=== PATIENT | female | born 1935 | race African-American/Black ===

== ENCOUNTER 2020-10-21 17:47 | Observation (INO) | payer OTHER, MEDICAID ==
[2020-10-21 18:27] LABS: #Basophils 0.1 10x3/uL (0.0-0.2); #Eosinphils 0.2 10x3/uL (0.0-0.5); #Monocytes 0.8 10x3/uL (0.0-1.1); #Neutrophils 5.9 10x3/uL (1.5-8.4); %Basophils 0.7 % (0.0-2.0); %Eosinophils 2.6 % (0.0-6.0); %Lymphocytes 23.7 % (18.0-47.0); %Monocytes 8.3 % (0.0-10.0); %Neutrophils 64.4 % (40.0-75.0); Hemoglobin 13.1 g/dL (12.0-15.5); Mean Corpuscular HGB CONC 31.3 g/dL (32.0-36.0); Mean Corpuscular Hemoglobin 28.5 pg (27.0-33.0); Mean Corpuscular Volume 91.1 fl (81.6-98.3); Mean Platelet Volume 10.1 fl (7.4-10.4); Platelet Count 239 10x3/uL (150-450); RBC Distribution Width 15.2 % (11.5-14.5); Red Blood Cell (RBC) Count 4.59 10x6/uL (3.90-5.03); White Blood Cell (WBC) Count 9.1 10x3/uL (3.5-10.5)
[2020-10-21 18:39] LABS: ALT (SGPT) 10 U/L (8-55); AST (SGOT) 17 U/L (5-34); Albumin 3.9 g/dL (3.4-4.8); Alkaline Phosphatase 202 U/L (40-110); Anion Gap 14 mmol/L (10-20); BUN (Urea Nitrogen) 17 mg/dL (9.8-20.1); Bilirubin, Total 0.5 mg/dL (0.2-1.2); Calc. Creatinine Clearance 0 mL/min (70-130); Calcium 9.9 mg/dL (7.8-10.44); Carbon Dioxide 26 mmol/L (23-31); Chloride 106 mmol/L (98-107); Globulin 3.4 g/dL (2.4-3.5); Glucose 107 mg/dL (83-110); Potassium 4.1 mmol/L (3.5-5.1); Protein, Total 7.3 g/dL (5.8-8.1); Sodium 142 mmol/L (136-145)
[2020-10-21 18:56] LABS: CKMB 1.8 ng/mL (0-6.6)
[2020-10-21] MEDS ORDERED: Acetaminophen 325 MG TAB PO PRN (19:29)
[2020-10-21] MEDS ORDERED: Ondansetron PF 4 MG/2 ML Vial IVP PRN (19:29)
[2020-10-21] MEDS ORDERED: Ondansetron ODT 4 MG TAB PO PRN (19:29)
[2020-10-21] MEDS ORDERED: HumaLOG 300 UNITS/3 ML VIAL SC PRN (19:39)
[2020-10-21] MEDS ORDERED: Dextrose 50% Abboject 50 ML SYRINGE SLOW IVP PRN (19:39)
[2020-10-21] MEDS ORDERED: Dextrose 5% in Water 1,000 ML IV PRN (19:39)
[2020-10-21 19:58] LABS: Bilirubin Neg (Negative); Blood, Urine Negative (Negative); Clarity Clear (Clear); Glucose, Urine (Dipstick) >=1000 mg/dL (Negative); Ketone, Urine Negative (Negative); Leukocyte 25 (Negative); Nitrite Negative (Negative); Protein, Urine (Dipstick) Negative (Neg-Trace); Urobilinogen Normal mg/dL (Less than 2)
[2020-10-21 20:16] LABS: Bacteria/HPF Rare-Few HPF (None Seen); RBC/HPF 0-3 HPF (0-3); Squamous Epithelial 0-3 HPF (0-3); WBC/HPF 0-3 HPF (0-3)
[2020-10-21] MEDS ORDERED: Aspirin 325 MG TAB ONE (20:23)
[2020-10-21 23:20] LABS: Troponin I 0.047 ng/mL (< 0.028)
[2020-10-22] MEDS ORDERED: Acetaminophen 325 MG TAB ONE (00:55)
[2020-10-22 03:49] LABS: #Basophils 0.1 10x3/uL (0.0-0.2); #Eosinphils 0.3 10x3/uL (0.0-0.5); #Monocytes 0.7 10x3/uL (0.0-1.1); #Neutrophils 5.5 10x3/uL (1.5-8.4); %Basophils 0.7 % (0.0-2.0); %Eosinophils 3.4 % (0.0-6.0); %Lymphocytes 28.1 % (18.0-47.0); %Neutrophils 59.5 % (40.0-75.0); Hemoglobin 12.2 g/dL (12.0-15.5); Mean Corpuscular HGB CONC 31.5 g/dL (32.0-36.0); Mean Corpuscular Hemoglobin 28.4 pg (27.0-33.0); Mean Platelet Volume 10.3 fl (7.4-10.4); Platelet Count 218 10x3/uL (150-450); RBC Distribution Width 15.2 % (11.5-14.5); White Blood Cell (WBC) Count 9.2 10x3/uL (3.5-10.5)
[2020-10-22 04:14] LABS: ALT (SGPT) 9 U/L (8-55); AST (SGOT) 14 U/L (5-34); Albumin 3.4 g/dL (3.4-4.8); Alkaline Phosphatase 165 U/L (40-110); Anion Gap 12 mmol/L (10-20); BUN (Urea Nitrogen) 19 mg/dL (9.8-20.1); Bilirubin, Total 0.5 mg/dL (0.2-1.2); Calc. Creatinine Clearance 0 mL/min (70-130); Calcium 9.8 mg/dL (7.8-10.44); Carbon Dioxide 26 mmol/L (23-31); Cardiac Risk 2.9 (Less than 4.5); Chloride 107 mmol/L (98-107); Cholesterol 127 mg/dl (< 200 Desired); Globulin 3.1 g/dL (2.4-3.5); Glucose 103 mg/dL (83-110); HDL Cholesterol 44 mg/dL (>60 Neg Risk); LDL Cholesterol, Calculated 65 mg/dL; Potassium 4.2 mmol/L (3.5-5.1); Protein, Total 6.5 g/dL (5.8-8.1); Sodium 141 mmol/L (136-145); Triglycerides 92 mg/dL (Less than 150)
[2020-10-22] MEDS ORDERED: Enoxaparin Sodium 40 MG/0.4 ML SYRINGE ONE (08:52)
[2020-10-22] MEDS: Carvedilol 12.5 MG TAB PO SCH ×2 (09:34→17:53)
[2020-10-22] MEDS: Amlodipine 10 MG TAB PO SCH (09:34)
[2020-10-22] MEDS: Citalopram 20 MG TAB PO SCH (09:35)
[2020-10-22] MEDS: Isosorbide Dinitrate 10 MG TAB PO SCH (09:35)
[2020-10-22] MEDS: Aspirin 81 mg Enteric Coated Tablet PO SCH (09:35)
[2020-10-22] MEDS: Losartan Potassium 50 MG TAB PO SCH (09:35)
[2020-10-22] MEDS: Enoxaparin Sodium 40 MG/0.4 ML SYRINGE SC SCH (09:35)
[2020-10-22] MEDS: Furosemide 20 MG TAB PO SCH (09:35)
[2020-10-22] MEDS: Pioglitazone HCl 15 MG TAB PO SCH (09:36)
[2020-10-22] MEDS: Magnesium Oxide 400 MG TAB PO SCH ×2 (09:36→22:20)
[2020-10-22] MEDS: Montelukast Sodium 10 mg Tablet PO SCH (09:36)
[2020-10-22] MEDS: Baclofen 10 MG TAB PO SCH ×3 (09:48→22:20)
[2020-10-22 10:48] LABS: Bilirubin Neg (Negative); Blood, Urine 25 (Negative); Clarity Cloudy (Clear); Glucose, Urine (Dipstick) >=1000 mg/dL (Negative); Ketone, Urine Negative (Negative); Leukocyte 500 (Negative); Nitrite Negative (Negative); Protein, Urine (Dipstick) 30 mg/dl (Neg-Trace); Specific Gravity, Urine 1.015 (1.002-1.036); Urobilinogen Normal mg/dL (Less than 2)
[2020-10-22 11:02] LABS: Urine Culture Reflex No No
[2020-10-22 11:14] LABS: Anion Gap 12 mmol/L (10-20); BUN (Urea Nitrogen) 18 mg/dL (9.8-20.1); Calc. Creatinine Clearance 0 mL/min (70-130); Calcium 9.8 mg/dL (7.8-10.44); Carbon Dioxide 27 mmol/L (23-31); Chloride 106 mmol/L (98-107); Glucose 120 mg/dL (83-110); Potassium 4.5 mmol/L (3.5-5.1); Sodium 140 mmol/L (136-145)
[2020-10-22 11:24] LABS: Bacteria/HPF 3+ HPF (None Seen); Squamous Epithelial 0-3 HPF (0-3)
[2020-10-22 16:10] VITALS: BMI 34.3
[2020-10-22] MEDS ORDERED: Atorvastatin Calcium 40 MG TAB PO SCH (21:00)
[2020-10-22 21:13] LABS: SARS-CoV-2 PCR by NAA Not Detected (NotDetected)
[2020-10-23 04:54] LABS: #Eosinphils 0.2 10x3/uL (0.0-0.5); #Monocytes 0.8 10x3/uL (0.0-1.1); #Neutrophils 5.2 10x3/uL (1.5-8.4); %Basophils 0.5 % (0.0-2.0); %Eosinophils 2.3 % (0.0-6.0); %Lymphocytes 28.5 % (18.0-47.0); %Monocytes 9.2 % (0.0-10.0); %Neutrophils 59.3 % (40.0-75.0); Hemoglobin 12.1 g/dL (12.0-15.5); Mean Corpuscular HGB CONC 31.3 g/dL (32.0-36.0); Mean Corpuscular Hemoglobin 28.2 pg (27.0-33.0); Mean Platelet Volume 10.9 fl (7.4-10.4); Platelet Count 209 10x3/uL (150-450); RBC Distribution Width 15.3 % (11.5-14.5); Red Blood Cell (RBC) Count 4.29 10x6/uL (3.90-5.03); White Blood Cell (WBC) Count 8.7 10x3/uL (3.5-10.5)
[2020-10-23 05:17] LABS: Troponin I 0.034 ng/mL (< 0.028)
[2020-10-23] MEDS ORDERED: hydrALAZINE 20 MG/ML VIAL SLOW IVP PRN (08:05)
[2020-10-23] MEDS ORDERED: GUAIFENESIN SF SOLN 200 MG/10 ML UDCUP PO PRN (08:05)
[2020-10-23] MEDS ORDERED: Calcium Carbonate 500 MG ChewTAB PO PRN (08:05)
[2020-10-23] MEDS ORDERED: Loratadine 10 MG TAB PO PRN (08:05)
[2020-10-23] MEDS ORDERED: Artificial Tear Sol 15 ML BOT EA EYE PRN (08:05)
[2020-10-23] MEDS ORDERED: Loperamide HCl 2 MG CAP PO PRN (08:05)
[2020-10-23] MEDS ORDERED: Senokot S 8.6-50 MG TAB PO PRN (08:05)
[2020-10-23] MEDS ORDERED: Benzonatate 100 MG CAP PO PRN (08:05)
[2020-10-23] MEDS ORDERED: Cepastat Lozenges 1 LOZ PO PRN (08:05)
[2020-10-23] MEDS ORDERED: Sodium Chloride 0.65% Nasal 44 ML BOT EA NARE PRN (08:05)
[2020-10-23] MEDS ORDERED: Hydrocerin (Eucerin) Cream 120 gm Jar TOP PRN (08:05)
[2020-10-23] MEDS ORDERED: Bisacodyl 5 MG TAB PO PRN (08:05)
[2020-10-23] MEDS: Citalopram 20 MG TAB PO SCH (08:45)
[2020-10-23] MEDS: Furosemide 20 MG TAB PO SCH (08:45)
[2020-10-23] MEDS: Montelukast Sodium 10 mg Tablet PO SCH (08:45)
[2020-10-23] MEDS: Magnesium Oxide 400 MG TAB PO SCH (08:45)
[2020-10-23] MEDS: Losartan Potassium 50 MG TAB PO SCH (08:45)
[2020-10-23] MEDS: Amlodipine 10 MG TAB PO SCH (08:45)
[2020-10-23] MEDS: Baclofen 10 MG TAB PO SCH ×2 (08:45→16:51)
[2020-10-23] MEDS: Pioglitazone HCl 15 MG TAB PO SCH (08:45)
[2020-10-23] MEDS: Aspirin 81 mg Enteric Coated Tablet PO SCH (08:45)
[2020-10-23] MEDS: Isosorbide Dinitrate 10 MG TAB PO SCH (08:45)
[2020-10-23] MEDS: Carvedilol 12.5 MG TAB PO SCH ×2 (08:45→16:51)
[2020-10-23] MEDS: Enoxaparin Sodium 40 MG/0.4 ML SYRINGE SC SCH (08:46)
[2020-10-23] MEDS: cefTRIAXone\\ROCEPHIN 1 GM in Sodium Chloride 0.9% 100 ML IVPB SCH ×2 (11:30→16:51)
[2020-10-23 16:28] VITALS: BP 114/63; TEMP 97.6
== END 2020-10-23 18:37 | disposition home or self-care (01) ==
LOC: CSHERS 17:47 → CSHERHOLD 19:29 → UNDOADMOB 23:19 → INTOOBSV 23:19 → CSHERHOLD 23:19 → CSHTELE 10-22 15:50
PROVIDERS: ADMIT Internal Medicine; ATTEND Internal Medicine
DX: G45.9 Transient cerebral ischemic attack, unspecified (principal); N39.0 Urinary tract infection, site not specified; J44.9 Chronic obstructive pulmonary disease, unspecified; I25.10 Atherosclerotic heart disease of native coronary artery without angina pectoris; E11.9 Type 2 diabetes mellitus without complications; Z79.4 Long term (current) use of insulin; E78.5 Hyperlipidemia, unspecified; I10 Essential (primary) hypertension; E66.9 Obesity, unspecified; I48.0 Paroxysmal atrial fibrillation; Z79.899 Other long term (current) drug therapy; Z79.82 Long term (current) use of aspirin; Z20.822 Contact with and (suspected) exposure to COVID-19
CPT/HCPCS: 36415; 70450; 70551; 71045; 80053; 80061; 81001; 81003; 81015; 82553; 83036; 83735; 84484; 85025; 87086; 87186; 93005; 93306; 94760; 96372; G0378; J0696; J1650; J3490; U0003; U0005

== ENCOUNTER 2021-06-09 05:35 | Emergency (ER) | payer MEDICARE, OTHER ==
[2021-06-09] MEDS ORDERED: HYDROcodone/Acetaminophen 5/325 mg Tablet ONE (06:28)
== END 2021-06-09 06:48 | disposition home or self-care (01) ==
LOC: CSHERS 05:35
DX: S70.02XA Contusion of left hip, initial encounter (principal); K21.9 Gastro-esophageal reflux disease without esophagitis; I11.0 Hypertensive heart disease with heart failure; I50.9 Heart failure, unspecified; E11.9 Type 2 diabetes mellitus without complications; I25.10 Atherosclerotic heart disease of native coronary artery without angina pectoris; I25.2 Old myocardial infarction; I48.91 Unspecified atrial fibrillation; E78.5 Hyperlipidemia, unspecified; E78.00 Pure hypercholesterolemia, unspecified; J44.9 Chronic obstructive pulmonary disease, unspecified; W19.XXXA Unspecified fall, initial encounter; Z87.19 Personal history of other diseases of the digestive system; Z86.73 Personal history of transient ischemic attack (TIA), and cerebral infarction without residual deficits; Z95.5 Presence of coronary angioplasty implant and graft; Z79.82 Long term (current) use of aspirin; Z79.899 Other long term (current) drug therapy
CPT/HCPCS: 72170

== ENCOUNTER 2022-05-11 12:55 | Emergency (ER) | payer OTHER ==
[2022-05-11 14:43] LABS: Anion Gap 16 mmol/L (10-20); BUN (Urea Nitrogen) 22 mg/dL (9.8-20.1); Calc. Creatinine Clearance 0 mL/min (70-130); Calcium 9.8 mg/dL (7.8-10.44); Carbon Dioxide 26 mmol/L (23-31); Chloride 100 mmol/L (98-107); Estimated GFR 46; Glucose 83 mg/dL (83-110); Magnesium 2.1 mg/dL (1.6-2.6); Potassium 4.7 mmol/L (3.5-5.1); Sodium 137 mmol/L (136-145)
[2022-05-11 14:46] LABS: #Basophils 0.1 10x3/uL (0.0-0.2); #Eosinphils 0.1 10x3/uL (0.0-0.5); #Monocytes 0.9 10x3/uL (0.0-1.1); #Neutrophils 5.6 10x3/uL (1.5-8.4); %Basophils 0.5 % (0.0-2.0); %Eosinophils 0.6 % (0.0-6.0); %Lymphocytes 28.4 % (18.0-47.0); %Neutrophils 59.8 % (40.0-75.0); Hemoglobin 15.3 g/dL (12.0-15.5); Mean Corpuscular HGB CONC 32.5 g/dL (32.0-36.0); Mean Corpuscular Hemoglobin 29.9 pg (27.0-33.0); Mean Corpuscular Volume 92.2 fl (81.6-98.3); Mean Platelet Volume 11.2 fl (7.4-10.4); Platelet Count 129 10x3/uL (150-450); RBC Distribution Width 15.1 % (11.5-14.5); Red Blood Cell (RBC) Count 5.11 10x6/uL (3.90-5.03); White Blood Cell (WBC) Count 9.4 10x3/uL (3.5-10.5)
[2022-05-11 15:02] LABS: Bilirubin Neg (Negative); Blood, Urine 50 (Negative); Clarity Clear (Clear); Glucose, Urine (Dipstick) >=1000 mg/dL (Negative); Ketone, Urine 5 mg/dL (Negative); Leukocyte Negative (Negative); Nitrite Negative (Negative); Protein, Urine (Dipstick) 15 mg/dl (Neg-Trace); Urobilinogen Normal mg/dL (Less than 2)
[2022-05-11 15:35] LABS: Bacteria/HPF Rare-Few HPF (None Seen); RBC/HPF 0-3 HPF (0-3); Transitional Epithelial 0-3 HPF (None Seen); WBC/HPF 0-3 HPF (0-3)
[2022-05-11 17:31] LABS: Actual Bicarbonate (HCO3v) 25 mEq/L (22-28); Base Excess 0.5 mEq/L (-2 - +2); Puncture Site Other Site
== END 2022-05-11 18:59 | disposition home or self-care (01) ==
LOC: CSHERS 12:55
DX: R41.0 Disorientation, unspecified (principal); K21.9 Gastro-esophageal reflux disease without esophagitis; E78.00 Pure hypercholesterolemia, unspecified; J44.9 Chronic obstructive pulmonary disease, unspecified; I11.0 Hypertensive heart disease with heart failure; I50.9 Heart failure, unspecified; E11.9 Type 2 diabetes mellitus without complications; I25.10 Atherosclerotic heart disease of native coronary artery without angina pectoris
CPT/HCPCS: 51701; 70450; 72192; 80048; 81003; 81015; 82805; 83735; 85025

== ENCOUNTER 2022-05-14 04:57 | Inpatient (IN) | payer OTHER ==
[2022-05-14 05:41] LABS: Bilirubin Neg (Negative); Blood, Urine 10 (Negative); Clarity Clear (Clear); Glucose, Urine (Dipstick) >=1000 mg/dL (Negative); Ketone, Urine Negative (Negative); Leukocyte 100 (Negative); Nitrite Negative (Negative); Protein, Urine (Dipstick) Negative (Neg-Trace); Specific Gravity, Urine 1.005 (1.005-1.030); Urobilinogen Normal mg/dL (Less than 2)
[2022-05-14 06:09] LABS: #Eosinphils 0.2 10x3/uL (0.0-0.5); #Monocytes 0.9 10x3/uL (0.0-1.1); #Neutrophils 5.1 10x3/uL (1.5-8.4); %Basophils 0.5 % (0.0-2.0); %Lymphocytes 23.9 % (18.0-47.0); %Monocytes 10.8 % (0.0-10.0); %Neutrophils 61.9 % (40.0-75.0); Hemoglobin 13.5 g/dL (12.0-15.5); Mean Corpuscular HGB CONC 32.3 g/dL (32.0-36.0); Mean Corpuscular Hemoglobin 30.3 pg (27.0-33.0); Mean Corpuscular Volume 93.9 fl (81.6-98.3); Mean Platelet Volume 10.7 fl (7.4-10.4); Platelet Count 107 10x3/uL (150-450); RBC Distribution Width 15.8 % (11.5-14.5); Red Blood Cell (RBC) Count 4.45 10x6/uL (3.90-5.03); White Blood Cell (WBC) Count 8.1 10x3/uL (3.5-10.5)
[2022-05-14 06:11] LABS: ALT (SGPT) 14 U/L (8-55); AST (SGOT) 22 U/L (5-34); Albumin 3.2 g/dL (3.4-4.8); Alkaline Phosphatase 114 U/L (40-110); Anion Gap 13 mmol/L (10-20); BUN (Urea Nitrogen) 28 mg/dL (9.8-20.1); Bilirubin, Total 0.5 mg/dL (0.2-1.2); Calc. Creatinine Clearance 0 mL/min (70-130); Calcium 9.3 mg/dL (7.8-10.44); Carbon Dioxide 28 mmol/L (23-31); Chloride 105 mmol/L (98-107); Estimated GFR 34; Globulin 3.1 g/dL (2.4-3.5); Glucose 121 mg/dL (83-110); Potassium 4.9 mmol/L (3.5-5.1); Protein, Total 6.3 g/dL (5.8-8.1); Sodium 141 mmol/L (136-145)
[2022-05-14 06:19] LABS: RBC/HPF 0-3 HPF (0-3)
[2022-05-14 06:20] LABS: Bacteria/HPF 1+ HPF (None Seen); Squamous Epithelial 0-3 HPF (0-3)
[2022-05-14 06:34] LABS: CKMB 2.6 ng/mL (0-6.6)
[2022-05-14] MEDS ORDERED: Ondansetron PF 4 MG/2 ML Vial IVP PRN (08:20)
[2022-05-14] MEDS ORDERED: Ondansetron ODT 4 MG TAB PO PRN (08:20)
[2022-05-14] MEDS ORDERED: Dextrose 50% Abboject 50 ML SYRINGE SLOW IVP PRN (09:21)
[2022-05-14] MEDS ORDERED: HumaLOG 300 UNITS/3 ML VIAL SC PRN ×2 (09:21)
[2022-05-14] MEDS ORDERED: Dextrose 5% in Water 1,000 ML IV PRN (09:21)
[2022-05-14 09:24] LABS: Troponin I 0.043 ng/mL (< 0.028)
[2022-05-14] MEDS ORDERED: cefTRIAXone\\ROCEPHIN 1 GM VIAL ONE (09:54)
[2022-05-14] MEDS: Sodium Chloride 0.9% 1,000 ML IV SCH (10:30)
[2022-05-14] MEDS: cefTRIAXone\\ROCEPHIN 1 GM in Sodium Chloride 0.9% 100 ML IVPB SCH (10:45)
[2022-05-14 12:25] LABS: Troponin I 0.039 ng/mL (< 0.028)
[2022-05-14] MEDS: Acetaminophen 325 MG TAB PO PRN (21:51)
[2022-05-15] MEDS: Sodium Chloride 0.9% 1,000 ML IV SCH (05:43)
[2022-05-15 05:51] LABS: #Basophils 0.1 10x3/uL (0.0-0.2); #Eosinphils 0.1 10x3/uL (0.0-0.5); #Monocytes 0.9 10x3/uL (0.0-1.1); #Neutrophils 4.1 10x3/uL (1.5-8.4); %Basophils 0.7 % (0.0-2.0); %Eosinophils 1.5 % (0.0-6.0); %Lymphocytes 32.3 % (18.0-47.0); %Monocytes 11.2 % (0.0-10.0); %Neutrophils 53.8 % (40.0-75.0); Hemoglobin 13.2 g/dL (12.0-15.5); Mean Corpuscular HGB CONC 32.6 g/dL (32.0-36.0); Mean Corpuscular Hemoglobin 30.4 pg (27.0-33.0); Mean Corpuscular Volume 93.3 fl (81.6-98.3); Platelet Count 106 10x3/uL (150-450); RBC Distribution Width 15.7 % (11.5-14.5); Red Blood Cell (RBC) Count 4.34 10x6/uL (3.90-5.03); White Blood Cell (WBC) Count 7.6 10x3/uL (3.5-10.5)
[2022-05-15 06:04] LABS: Anion Gap 14 mmol/L (10-20); BUN (Urea Nitrogen) 23 mg/dL (9.8-20.1); Calc. Creatinine Clearance 45 mL/min (70-130); Calcium 8.7 mg/dL (7.8-10.44); Carbon Dioxide 22 mmol/L (23-31); Chloride 107 mmol/L (98-107); Estimated GFR 48; Glucose 94 mg/dL (83-110); Potassium 4.3 mmol/L (3.5-5.1); Sodium 139 mmol/L (136-145)
[2022-05-15] MEDS: cefTRIAXone\\ROCEPHIN 1 GM in Sodium Chloride 0.9% 100 ML IVPB SCH (09:52)
[2022-05-15] MEDS: Acetaminophen 325 MG TAB PO PRN ×2 (09:53→20:04)
[2022-05-15] MEDS ORDERED: HYDROcodone/Acetaminophen 5/325 mg Tablet PO SCH (12:30)
[2022-05-15] MEDS ORDERED: Carvedilol 25 MG TAB PO SCH (22:45)
[2022-05-16] MEDS: Acetaminophen 325 MG TAB PO PRN ×2 (00:18→21:47)
[2022-05-16] MEDS: Sodium Chloride 0.9% 1,000 ML IV SCH (02:11)
[2022-05-16] MEDS ORDERED: Ketorolac Tromethamine 30 MG/ML VIAL IVP SCH (03:00)
[2022-05-16 05:58] LABS: Anion Gap 12 mmol/L (10-20); BUN (Urea Nitrogen) 17 mg/dL (9.8-20.1); Calc. Creatinine Clearance 47 mL/min (70-130); Calcium 9.3 mg/dL (7.8-10.44); Carbon Dioxide 26 mmol/L (23-31); Chloride 106 mmol/L (98-107); Estimated GFR 50; Glucose 92 mg/dL (83-110); Potassium 4.5 mmol/L (3.5-5.1); Sodium 139 mmol/L (136-145)
[2022-05-16 06:13] LABS: #Basophils 0.1 10x3/uL (0.0-0.2); #Eosinphils 0.2 10x3/uL (0.0-0.5); #Neutrophils 3.8 10x3/uL (1.5-8.4); %Basophils 0.7 % (0.0-2.0); %Eosinophils 2.6 % (0.0-6.0); %Lymphocytes 36.5 % (18.0-47.0); %Monocytes 11.8 % (0.0-10.0); Hemoglobin 13.8 g/dL (12.0-15.5); Mean Corpuscular HGB CONC 32.5 g/dL (32.0-36.0); Mean Corpuscular Hemoglobin 30.5 pg (27.0-33.0); Mean Corpuscular Volume 93.8 fl (81.6-98.3); Mean Platelet Volume 11.4 fl (7.4-10.4); Platelet Count 115 10x3/uL (150-450); RBC Distribution Width 15.6 % (11.5-14.5); Red Blood Cell (RBC) Count 4.52 10x6/uL (3.90-5.03)
[2022-05-16] MEDS ORDERED: Metoclopramide HCl 10 MG TAB PO SCH (09:00)
[2022-05-16] MEDS ORDERED: Baclofen 10 MG TAB PO SCH (09:00)
[2022-05-16] MEDS ORDERED: [UNRECOGNIZED DRUG - OTHER] INH SCH (09:00)
[2022-05-16] MEDS ORDERED: FORMOTEROL FUMARATE 20 MCG/2 ML INH SCH (09:00)
[2022-05-16] MEDS: Montelukast Sodium 10 mg Tablet PO SCH (09:39)
[2022-05-16] MEDS: Citalopram 20 MG TAB PO SCH (09:39)
[2022-05-16] MEDS: Carvedilol 25 MG TAB PO SCH ×2 (09:39→16:54)
[2022-05-16] MEDS: Aspirin Chewable 81 MG TAB PO SCH (09:40)
[2022-05-16] MEDS: Isosorbide Dinitrate 10 MG TAB PO SCH ×2 (09:40→20:06)
[2022-05-16] MEDS: Amlodipine 5 MG TAB PO SCH (09:40)
[2022-05-16] MEDS: Magnesium Oxide 400 MG TAB PO SCH ×2 (09:40→20:06)
[2022-05-16] MEDS: Losartan Potassium 50 MG TAB PO SCH (09:41)
[2022-05-16] MEDS: Polyethylene Glycol 3350 17 GM Packet PO SCH (09:42)
[2022-05-16] MEDS: Empagliflozin 10 MG TAB PO SCH (09:48)
[2022-05-16] MEDS: cefTRIAXone\\ROCEPHIN 1 GM in Sodium Chloride 0.9% 100 ML IVPB SCH (10:49)
[2022-05-16] MEDS ORDERED: Ipratropium/Albuterol 3 ML NEB NEB SCH (13:00)
[2022-05-16] MEDS ORDERED: Preparation H Ointment 28 GM TUBE TOP PRN (13:21)
[2022-05-16] MEDS: Ipratropium Bromide 2.5 ml Neb NEB SCH ×2 (13:30→19:16)
[2022-05-16] MEDS ORDERED: Mometasone/Formoterol 200/5 60 PUFF INH SCH (18:30)
[2022-05-16] MEDS ORDERED: Atorvastatin Calcium 40 MG TAB PO SCH (21:00)
[2022-05-17] MEDS: Ipratropium Bromide 2.5 ml Neb NEB SCH ×2 (00:47→06:55)
[2022-05-17 05:27] LABS: Cardiac Risk 3.1 (Less than 4.5)
[2022-05-17] MEDS: Acetaminophen 325 MG TAB PO PRN (05:36)
[2022-05-17] MEDS ORDERED: Budesonide 0.5 MG/2 ML NEB NEB SCH (07:00)
[2022-05-17] MEDS: Amlodipine 5 MG TAB PO SCH (08:15)
[2022-05-17] MEDS: Magnesium Oxide 400 MG TAB PO SCH (08:15)
[2022-05-17] MEDS: Isosorbide Dinitrate 10 MG TAB PO SCH (08:15)
[2022-05-17] MEDS: Aspirin Chewable 81 MG TAB PO SCH (08:15)
[2022-05-17] MEDS: Polyethylene Glycol 3350 17 GM Packet PO SCH (08:15)
[2022-05-17] MEDS: Montelukast Sodium 10 mg Tablet PO SCH (08:15)
[2022-05-17] MEDS: Empagliflozin 10 MG TAB PO SCH (08:15)
[2022-05-17] MEDS: Carvedilol 25 MG TAB PO SCH (08:15)
[2022-05-17] MEDS: Losartan Potassium 50 MG TAB PO SCH (08:15)
[2022-05-17] MEDS: Citalopram 20 MG TAB PO SCH (08:15)
[2022-05-17] MEDS: cefTRIAXone\\ROCEPHIN 1 GM in Sodium Chloride 0.9% 100 ML IVPB SCH (10:06)
[2022-05-17] MEDS ORDERED: Magnesium Citrate 300 ML BOT PO SCH (10:45)
[2022-05-17 12:25] VITALS: BP 160/79; TEMP 98.7
[2022-05-17] MEDS ORDERED: FLU VACC QS2022-23(65YR UP)/PF 240 MCG/0.7 ML SYRINGE IM ONE (18:00)
== END 2022-05-17 12:26 | disposition home or self-care (01) | DRG 92 ==
LOC: CSHERS 04:57 → INTOOBSV 13:16 → CSHERHOLD 13:16 → CSHTELE 15:46 → OBSVTOIN 05-16 09:35
PROVIDERS: ADMIT Family Medicine; ATTEND Family Medicine
DX: G92.8 Other toxic encephalopathy (principal); I13.0 Hypertensive heart and chronic kidney disease with heart failure and stage 1 through stage 4 chronic kidney disease, or unspecified chronic kidney disease; N17.9 Acute kidney failure, unspecified; N39.0 Urinary tract infection, site not specified; I50.42 Chronic combined systolic (congestive) and diastolic (congestive) heart failure; R44.0 Auditory hallucinations; T50.995A Adverse effect of other drugs, medicaments and biological substances, initial encounter; Z20.822 Contact with and (suspected) exposure to COVID-19; I48.0 Paroxysmal atrial fibrillation; I25.10 Atherosclerotic heart disease of native coronary artery without angina pectoris; K21.9 Gastro-esophageal reflux disease without esophagitis; F41.9 Anxiety disorder, unspecified; F32.A Depression, unspecified; F03.90 Unspecified dementia, unspecified severity, without behavioral disturbance, psychotic disturbance, mood disturbance, and anxiety; G43.909 Migraine, unspecified, not intractable, without status migrainosus; J44.9 Chronic obstructive pulmonary disease, unspecified; E86.9 Volume depletion, unspecified; M25.551 Pain in right hip; N18.30 Chronic kidney disease, stage 3 unspecified; G89.29 Other chronic pain; E78.5 Hyperlipidemia, unspecified; E11.22 Type 2 diabetes mellitus with diabetic chronic kidney disease; R44.1 Visual hallucinations; R29.6 Repeated falls; M48.061 Spinal stenosis, lumbar region without neurogenic claudication; Z87.11 Personal history of peptic ulcer disease; I25.2 Old myocardial infarction; Z86.73 Personal history of transient ischemic attack (TIA), and cerebral infarction without residual deficits; Z88.5 Allergy status to narcotic agent; Z91.040 Latex allergy status; Z79.899 Other long term (current) drug therapy; Z79.82 Long term (current) use of aspirin; Z95.5 Presence of coronary angioplasty implant and graft; Z79.51 Long term (current) use of inhaled steroids; Z79.84 Long term (current) use of oral hypoglycemic drugs; Z91.81 History of falling
CPT/HCPCS: 36415; 36416; 51701; 70450; 70551; 71045; 72125; 73521; 80048; 80053; 80061; 81003; 81015; 82553; 83605; 84484; 85025; 87086; 93005; 94640; 94760; 95816; 95819; 95957; 96374; 96375; 96376; G0378; J0696; J1885; J3490; J7050; U0003; U0005

== ENCOUNTER 2022-06-23 17:27 | Inpatient (IN) | payer OTHER ==
[2022-06-23] MEDS ORDERED: Aspirin Chewable 81 MG TAB ONE (18:26)
[2022-06-23 18:39] LABS: #Eosinphils 0.2 10x3/uL (0.0-0.5); #Monocytes 0.7 10x3/uL (0.0-1.1); #Neutrophils 4.2 10x3/uL (1.5-8.4); %Basophils 0.5 % (0.0-2.0); %Eosinophils 2.5 % (0.0-6.0); %Lymphocytes 30.9 % (18.0-47.0); %Monocytes 9.3 % (0.0-10.0); %Neutrophils 56.4 % (40.0-75.0); Hemoglobin 12.2 g/dL (12.0-15.5); Mean Corpuscular HGB CONC 32.7 g/dL (32.0-36.0); Mean Corpuscular Volume 94.7 fl (81.6-98.3); Mean Platelet Volume 10.5 fl (7.4-10.4); Platelet Count 173 10x3/uL (150-450); RBC Distribution Width 15.9 % (11.5-14.5); Red Blood Cell (RBC) Count 3.94 10x6/uL (3.90-5.03); White Blood Cell (WBC) Count 7.5 10x3/uL (3.5-10.5)
[2022-06-23 18:46] LABS: ALT (SGPT) 9 U/L (8-55); AST (SGOT) 17 U/L (5-34); Albumin 3.5 g/dL (3.4-4.8); Alkaline Phosphatase 153 U/L (40-110); Anion Gap 14 mmol/L (10-20); BUN (Urea Nitrogen) 23 mg/dL (9.8-20.1); Bilirubin, Total 0.5 mg/dL (0.2-1.2); Calc. Creatinine Clearance 0 mL/min (70-130); Calcium 8.8 mg/dL (7.8-10.44); Carbon Dioxide 22 mmol/L (23-31); Chloride 105 mmol/L (98-107); Estimated GFR 41; Glucose 92 mg/dL (83-110); Potassium 4.2 mmol/L (3.5-5.1); Protein, Total 6.5 g/dL (5.8-8.1); Sodium 137 mmol/L (136-145)
[2022-06-23 19:06] LABS: CKMB 1.6 ng/mL (0-6.6)
[2022-06-23 19:11] LABS: Platelet Morphology Comment Appears Decreased; RBC Morphology Normal
[2022-06-23] MEDS ORDERED: Nitroglycerin 0.4 MG TAB (25 Tab Bottle) SL PRN (21:34)
[2022-06-23] MEDS ORDERED: Ondansetron ODT 4 MG TAB PO PRN (21:40)
[2022-06-23] MEDS ORDERED: Senokot S 8.6-50 MG TAB PO PRN (21:40)
[2022-06-23] MEDS ORDERED: Furosemide 20 MG/2 ML VIAL SLOW IVP SCH (21:45)
[2022-06-23 22:22] LABS: Troponin I 0.067 ng/mL (< 0.028)
[2022-06-23] MEDS ORDERED: Furosemide 40 MG/4 ML VIAL ONE (22:40)
[2022-06-23] MEDS ORDERED: Atorvastatin Calcium 40 MG TAB ONE (22:41)
[2022-06-23] MEDS ORDERED: Acetaminophen 325 MG TAB ONE (22:56)
[2022-06-23] MEDS ORDERED: Carvedilol 25 MG TAB ONE (22:57)
[2022-06-23] MEDS: Acetaminophen 325 MG TAB PO PRN (22:58)
[2022-06-24] MEDS: Ipratropium Bromide 2.5 ml Neb NEB SCH ×4 (01:00→20:55)
[2022-06-24 03:33] LABS: Troponin I 0.065 ng/mL (< 0.028)
[2022-06-24 06:27] LABS: Anion Gap 15 mmol/L (10-20); BUN (Urea Nitrogen) 24 mg/dL (9.8-20.1); Calc. Creatinine Clearance 0 mL/min (70-130); Calcium 9.1 mg/dL (7.8-10.44); Carbon Dioxide 24 mmol/L (23-31); Chloride 106 mmol/L (98-107); Estimated GFR 36; Glucose 93 mg/dL (83-110); Potassium 4.5 mmol/L (3.5-5.1); Sodium 140 mmol/L (136-145)
[2022-06-24] MEDS: Arformoterol 15 MCG/2 ML NEB NEB SCH ×2 (06:50→20:55)
[2022-06-24] MEDS: Budesonide 0.5 MG/2 ML NEB NEB SCH (06:50)
[2022-06-24] MEDS ORDERED: Ipratropium Bromide 2.5 ml Neb ONE ×2 (07:05→12:51)
[2022-06-24] MEDS ORDERED: Budesonide 0.5 MG/2 ML NEB ONE (07:06)
[2022-06-24 07:20] LABS: #Eosinphils 0.2 10x3/uL (0.0-0.5); #Monocytes 0.8 10x3/uL (0.0-1.1); %Basophils 0.6 % (0.0-2.0); %Eosinophils 2.8 % (0.0-6.0); %Monocytes 10.5 % (0.0-10.0); Mean Corpuscular HGB CONC 32.7 g/dL (32.0-36.0); Mean Corpuscular Hemoglobin 30.9 pg (27.0-33.0); Mean Corpuscular Volume 94.6 fl (81.6-98.3); Mean Platelet Volume 10.5 fl (7.4-10.4); Platelet Count 211 10x3/uL (150-450); Red Blood Cell (RBC) Count 3.88 10x6/uL (3.90-5.03); White Blood Cell (WBC) Count 7.3 10x3/uL (3.5-10.5)
[2022-06-24 07:52] VITALS: BMI 36.3
[2022-06-24] MEDS ORDERED: Aspirin Chewable 81 MG TAB ONE (08:07)
[2022-06-24] MEDS ORDERED: Amlodipine 5 MG TAB ONE (08:08)
[2022-06-24] MEDS ORDERED: Furosemide 40 MG/4 ML VIAL ONE (08:08)
[2022-06-24] MEDS ORDERED: Heparin 5,000 UNITS/ML VIAL ONE (08:08)
[2022-06-24] MEDS ORDERED: Carvedilol 25 MG TAB ONE (08:10)
[2022-06-24] MEDS ORDERED: Losartan Potassium 50 MG TAB ONE (08:10)
[2022-06-24] MEDS: Carvedilol 25 MG TAB PO SCH ×2 (08:25→22:24)
[2022-06-24] MEDS: Furosemide 20 MG/2 ML VIAL SLOW IVP SCH (08:25)
[2022-06-24] MEDS: Amlodipine 5 MG TAB PO SCH (08:25)
[2022-06-24] MEDS: Lidocaine 4% Patch TD SCH (08:25)
[2022-06-24] MEDS: Isosorbide Dinitrate 10 MG TAB PO SCH ×2 (08:25→22:24)
[2022-06-24] MEDS: Heparin 5,000 UNITS/ML VIAL SC SCH ×3 (08:25→22:24)
[2022-06-24] MEDS: Citalopram 20 MG TAB PO SCH (08:25)
[2022-06-24] MEDS: Empagliflozin 10 MG TAB PO SCH (08:25)
[2022-06-24] MEDS: Aspirin Chewable 81 MG TAB PO SCH (08:25)
[2022-06-24] MEDS: Magnesium Oxide 400 MG TAB PO SCH ×2 (08:26→22:24)
[2022-06-24] MEDS: Polyethylene Glycol 3350 17 GM Packet PO SCH (08:26)
[2022-06-24] MEDS: Losartan Potassium 50 MG TAB PO SCH (08:26)
[2022-06-24] MEDS: Mometasone/Formoterol 200/5 60 PUFF INH SCH ×2 (08:27→20:55)
[2022-06-24 10:37] LABS: Magnesium 1.9 mg/dL (1.6-2.6)
[2022-06-24] MEDS ORDERED: Dextrose 5% in Water 1,000 ML IV PRN (12:30)
[2022-06-24] MEDS ORDERED: Dextrose 50% Abboject 50 ML SYRINGE SLOW IVP PRN (12:30)
[2022-06-24] MEDS: Montelukast Sodium 10 mg Tablet PO SCH (22:24)
[2022-06-24] MEDS: Atorvastatin Calcium 40 MG TAB PO SCH (22:24)
[2022-06-24] MEDS: LIDOCAINE Patch Removal TOP SCH (22:25)
[2022-06-24] MEDS: Acetaminophen 325 MG TAB PO PRN (22:37)
[2022-06-25] MEDS: Ipratropium Bromide 2.5 ml Neb NEB SCH ×4 (01:00→20:50)
[2022-06-25 03:46] LABS: #Basophils 0.1 10x3/uL (0.0-0.2); #Eosinphils 0.2 10x3/uL (0.0-0.5); #Monocytes 0.8 10x3/uL (0.0-1.1); #Neutrophils 4.3 10x3/uL (1.5-8.4); %Basophils 0.8 % (0.0-2.0); %Lymphocytes 32.5 % (18.0-47.0); %Monocytes 10.4 % (0.0-10.0); Hemoglobin 12.8 g/dL (12.0-15.5); Mean Corpuscular HGB CONC 32.9 g/dL (32.0-36.0); Mean Corpuscular Hemoglobin 30.8 pg (27.0-33.0); Mean Corpuscular Volume 93.7 fl (81.6-98.3); Mean Platelet Volume 10.2 fl (7.4-10.4); Platelet Count 215 10x3/uL (150-450); RBC Distribution Width 15.9 % (11.5-14.5); Red Blood Cell (RBC) Count 4.15 10x6/uL (3.90-5.03); White Blood Cell (WBC) Count 7.9 10x3/uL (3.5-10.5)
[2022-06-25 03:59] LABS: Anion Gap 16 mmol/L (10-20); BUN (Urea Nitrogen) 24 mg/dL (9.8-20.1); Calc. Creatinine Clearance 36 mL/min (70-130); Calcium 9.5 mg/dL (7.8-10.44); Carbon Dioxide 27 mmol/L (23-31); Chloride 105 mmol/L (98-107); Estimated GFR 31; Glucose 104 mg/dL (83-110); Sodium 144 mmol/L (136-145)
[2022-06-25] MEDS: Budesonide 0.5 MG/2 ML NEB NEB SCH (06:35)
[2022-06-25] MEDS: Arformoterol 15 MCG/2 ML NEB NEB SCH ×2 (06:38→20:50)
[2022-06-25] MEDS: Furosemide 20 MG/2 ML VIAL SLOW IVP SCH (09:15)
[2022-06-25] MEDS: Carvedilol 25 MG TAB PO SCH ×2 (09:16→21:53)
[2022-06-25] MEDS: Lidocaine 4% Patch TD SCH (09:16)
[2022-06-25] MEDS: Aspirin Chewable 81 MG TAB PO SCH (09:16)
[2022-06-25] MEDS: Polyethylene Glycol 3350 17 GM Packet PO SCH (09:16)
[2022-06-25] MEDS: Empagliflozin 10 MG TAB PO SCH (09:16)
[2022-06-25] MEDS: Magnesium Oxide 400 MG TAB PO SCH ×2 (09:16→21:53)
[2022-06-25] MEDS: Losartan Potassium 50 MG TAB PO SCH (09:16)
[2022-06-25] MEDS: Isosorbide Dinitrate 10 MG TAB PO SCH ×2 (09:16→21:53)
[2022-06-25] MEDS: Amlodipine 5 MG TAB PO SCH (09:16)
[2022-06-25] MEDS: Heparin 5,000 UNITS/ML VIAL SC SCH ×3 (09:16→21:53)
[2022-06-25] MEDS: Citalopram 20 MG TAB PO SCH (09:29)
[2022-06-25] MEDS: Mometasone/Formoterol 200/5 60 PUFF INH SCH (10:00)
[2022-06-25] MEDS: Acetaminophen 325 MG TAB PO PRN (14:50)
[2022-06-25] MEDS: Atorvastatin Calcium 40 MG TAB PO SCH (21:53)
[2022-06-25] MEDS: Montelukast Sodium 10 mg Tablet PO SCH (21:53)
[2022-06-25] MEDS: LIDOCAINE Patch Removal TOP SCH (23:03)
[2022-06-26] MEDS: Acetaminophen 325 MG TAB PO PRN ×2 (00:35→06:31)
[2022-06-26] MEDS: Ipratropium Bromide 2.5 ml Neb NEB SCH ×3 (01:15→13:55)
[2022-06-26] MEDS: Furosemide 20 MG/2 ML VIAL SLOW IVP SCH ×2 (06:31→14:49)
[2022-06-26] MEDS: Arformoterol 15 MCG/2 ML NEB NEB SCH (07:00)
[2022-06-26] MEDS: Budesonide 0.5 MG/2 ML NEB NEB SCH (07:00)
[2022-06-26] MEDS ORDERED: Furosemide 20 MG TAB PO SCH (09:00)
[2022-06-26] MEDS: Isosorbide Dinitrate 10 MG TAB PO SCH (11:11)
[2022-06-26] MEDS: Carvedilol 25 MG TAB PO SCH (11:11)
[2022-06-26] MEDS: Heparin 5,000 UNITS/ML VIAL SC SCH (11:12)
[2022-06-26] MEDS: Magnesium Oxide 400 MG TAB PO SCH (11:12)
[2022-06-26] MEDS: Losartan Potassium 50 MG TAB PO SCH (11:12)
[2022-06-26] MEDS: Amlodipine 5 MG TAB PO SCH (11:12)
[2022-06-26] MEDS: Citalopram 20 MG TAB PO SCH (11:12)
[2022-06-26] MEDS: Empagliflozin 10 MG TAB PO SCH (11:13)
[2022-06-26] MEDS: Aspirin Chewable 81 MG TAB PO SCH (11:13)
[2022-06-26] MEDS: Lidocaine 4% Patch TD SCH (11:13)
[2022-06-26] MEDS: Polyethylene Glycol 3350 17 GM Packet PO SCH (11:36)
[2022-06-26 17:13] VITALS: BP 138/65; TEMP 97.9
== END 2022-06-26 16:15 | disposition home health service (06) | DRG 291 ==
LOC: CSHERS 17:27 → CSHERHOLD 21:26 → CSHTELE 06-24 17:01 → OBSVTOIN 06-25 14:23
PROVIDERS: ADMIT Student in an Organized Health Care Education/Training Program; ATTEND Internal Medicine
DX: I13.0 Hypertensive heart and chronic kidney disease with heart failure and stage 1 through stage 4 chronic kidney disease, or unspecified chronic kidney disease (principal); I50.33 Acute on chronic diastolic (congestive) heart failure; N17.9 Acute kidney failure, unspecified; I48.91 Unspecified atrial fibrillation; J44.9 Chronic obstructive pulmonary disease, unspecified; K21.9 Gastro-esophageal reflux disease without esophagitis; M19.90 Unspecified osteoarthritis, unspecified site; E11.22 Type 2 diabetes mellitus with diabetic chronic kidney disease; I27.20 Pulmonary hypertension, unspecified; F03.90 Unspecified dementia, unspecified severity, without behavioral disturbance, psychotic disturbance, mood disturbance, and anxiety; E78.2 Mixed hyperlipidemia; E11.59 Type 2 diabetes mellitus with other circulatory complications; I25.118 Atherosclerotic heart disease of native coronary artery with other forms of angina pectoris; N18.30 Chronic kidney disease, stage 3 unspecified; Z91.040 Latex allergy status; Z79.82 Long term (current) use of aspirin; Z79.51 Long term (current) use of inhaled steroids; Z79.899 Other long term (current) drug therapy; Z90.49 Acquired absence of other specified parts of digestive tract; Z98.890 Other specified postprocedural states; I25.2 Old myocardial infarction; Z86.73 Personal history of transient ischemic attack (TIA), and cerebral infarction without residual deficits; Z90.710 Acquired absence of both cervix and uterus; Z88.5 Allergy status to narcotic agent
CPT/HCPCS: 36415; 36416; 71045; 71046; 80048; 80053; 82553; 82652; 83735; 83880; 84484; 85025; 93005; 94640; J1644; J1940; J7626

== ENCOUNTER 2023-01-20 12:09 | Outpatient (CLI) | payer OTHER | END 2023-01-20 12:10 | disposition home or self-care (01) | LOC: CSHRAD 12:09 | PROVIDERS: ATTEND Internal Medicine | DX: R07.9 Chest pain, unspecified (principal) ==

== ENCOUNTER 2023-03-19 14:59 | Outpatient (CLI) | payer OTHER, MEDICAID | END 2023-03-19 15:00 | disposition home or self-care (01) | LOC: EDBD → CSHRAD 14:59 | PROVIDERS: ATTEND Internal Medicine | DX: J44.1 Chronic obstructive pulmonary disease with (acute) exacerbation (principal); J90 Pleural effusion, not elsewhere classified; J98.11 Atelectasis; I51.7 Cardiomegaly | CPT/HCPCS: 71046 ==

== ENCOUNTER 2023-08-12 12:41 | Outpatient (CLI) | payer OTHER | END 2023-08-12 12:42 | disposition home or self-care (01) | LOC: CSHRAD 12:41 | PROVIDERS: ATTEND Internal Medicine | DX: J44.9 Chronic obstructive pulmonary disease, unspecified (principal); I51.7 Cardiomegaly | CPT/HCPCS: 71046 ==

== ENCOUNTER 2023-08-30 11:10 | Inpatient (IN) | payer OTHER ==
[2023-08-30 12:22] LABS: #Basophils 0.06 10x3/uL (0.0-0.2); #Eosinphils 0.03 10x3/uL (0.0-0.5); #Monocytes 0.82 10x3/uL (0.0-1.1); #Neutrophils 9.32 10x3/uL (1.5-8.4); %Basophils 0.5 % (0.0-2.0); %Eosinophils 0.2 % (0.0-6.0); %Lymphocytes 13.5 % (18.0-47.0); %Monocytes 6.8 % (0.0-10.0); %Neutrophils 77.6 % (40.0-75.0); Hematocrit 38.1 % (34.9-44.5); Hemoglobin 12.3 g/dL (12.0-15.5); Mean Corpuscular HGB CONC 32.3 g/dL (32.0-36.0); Mean Corpuscular Hemoglobin 30.8 pg (27.0-33.0); Mean Corpuscular Volume 95.3 fL (81.6-98.3); Mean Platelet Volume 10.3 fL (7.4-10.4); Platelet Count 229 10x3/uL (150-450); RBC Distribution Width 16.7 % (11.5-14.5)
[2023-08-30 12:28] LABS: INR-International Normal Ratio 1.3; PTT 28.4 sec (22.0-33.0); Prothrombin Time 13.5 sec (9.5-12.1)
[2023-08-30] MEDS ORDERED: dilTIAZem 25 MG/5 ML VIAL ONE (12:38)
[2023-08-30 12:40] LABS: ALT (SGPT) 129 U/L (8-55); AST (SGOT) 69 U/L (5-34); Albumin 3.6 g/dL (3.4-4.8); Alkaline Phosphatase 154 U/L (40-110); Anion Gap 16 mmol/L (10-20); BUN (Urea Nitrogen) 31 mg/dL (9.8-20.1); Bilirubin, Total 0.8 mg/dL (0.2-1.2); Calc. Creatinine Clearance 0 mL/min (70-130); Calcium 9.6 mg/dL (7.8-10.44); Carbon Dioxide 20 mmol/L (23-31); Chloride 107 mmol/L (98-107); Estimated GFR 29; Globulin 3.3 g/dL (2.4-3.5); Glucose 113 mg/dL (83-110); Potassium 4.8 mmol/L (3.5-5.1); Protein, Total 6.9 g/dL (5.8-8.1); Sodium 138 mmol/L (136-145)
[2023-08-30] MEDS ORDERED: Piperacillin/Tazobactam 4.5 GM VIAL ONE (13:17)
[2023-08-30 13:24] LABS: Influenza A by NAA Not Detected (NotDetected); Influenza B by NAA Not Detected (NotDetected); SARS-CoV-2 NAA Rapid Test Not Detected (NotDetected)
[2023-08-30] MEDS ORDERED: Loratadine 10 MG TAB PO PRN (14:20)
[2023-08-30] MEDS ORDERED: Sodium Chloride 0.65% Nasal 44 ML BOT EA NARE PRN (14:20)
[2023-08-30] MEDS ORDERED: Ondansetron PF 4 MG/2 ML Vial IVP PRN (14:20)
[2023-08-30] MEDS ORDERED: Artificial Tear Ophth Sol 15 ML BOT EA EYE PRN (14:20)
[2023-08-30] MEDS ORDERED: Moisturizing Cream (Eucerin) 113 GM JAR TOP PRN (14:20)
[2023-08-30] MEDS ORDERED: Ondansetron ODT 4 MG TAB PO PRN (14:20)
[2023-08-30] MEDS ORDERED: Benzonatate 100 MG CAP PO PRN (14:20)
[2023-08-30] MEDS: Furosemide 20 MG (2 mL) VIAL SLOW IVP SCH (15:34)
[2023-08-30] MEDS: Acetaminophen 325 MG TAB PO PRN (15:34)
[2023-08-30] MEDS: VANCOMYCIN 1.75 GM/350 ML BAG 1.75 GM in Premix 1 BAG IVPB SCH (15:35)
[2023-08-30 15:39] LABS: Troponin I 0.103 ng/mL (< 0.028)
[2023-08-30 16:22] LABS: Influenza A by NAA Not Detected (NotDetected); Influenza B by NAA Not Detected (NotDetected); RSV by NAA Not Detected (NotDetected); SARS-CoV-2 NAA Rapid Test Not Detected (NotDetected)
[2023-08-30 17:09] LABS: RSV by NAA Not Detected (NotDetected)
[2023-08-30 18:20] LABS: Troponin I 0.105 ng/mL (< 0.028)
[2023-08-30 19:04] LABS: Bilirubin Neg (Negative); Blood, Urine Negative (Negative); Clarity Clear (Clear); Glucose, Urine (Dipstick) 250 mg/dL (Negative); Ketone, Urine Negative (Negative); Leukocyte Negative (Negative); Nitrite Negative (Negative); Protein, Urine (Dipstick) 15 mg/dl (Neg-Trace); Specific Gravity, Urine 1.015 (1.005-1.030); Urobilinogen Normal mg/dL (Less than 2)
[2023-08-30 19:18] LABS: Bacteria/HPF Rare-Few HPF (None Seen); RBC/HPF None Seen HPF (0-3); Squamous Epithelial 0-3 HPF (0-3); WBC/HPF None Seen HPF (0-3)
[2023-08-30] MEDS: Ipratropium Bromide 2.5 ml Neb NEB SCH (19:18)
[2023-08-30 19:19] LABS: Legionella Urinary Ag Negative (Negative); Strep pneumo Urine Ag NEGATIVE (NEGATIVE)
[2023-08-30] MEDS: Cefepime 2 GM in Sodium Chloride 0.9% 100 ML IVPB SCH (19:56)
[2023-08-30] MEDS: Apixaban 2.5 MG TAB PO SCH (20:43)
[2023-08-30] MEDS: Atorvastatin Calcium 40 MG TAB PO SCH (20:43)
[2023-08-30] MEDS: Gabapentin 300 MG CAP PO SCH (20:44)
[2023-08-30] MEDS: Famotidine 20 MG TAB PO SCH (20:44)
[2023-08-30] MEDS: Famotidine/PF 20 mg/2ml Vial SLOW IVP SCH (20:45)
[2023-08-30] MEDS ORDERED: Carvedilol 25 MG TAB PO SCH (21:00)
[2023-08-30] MEDS: Ipratropium Bromide 2.5 ml Neb ONE (23:17)
[2023-08-31 03:42] LABS: #Basophils 0.08 10x3/uL (0.0-0.2); #Eosinphils 0.06 10x3/uL (0.0-0.5); #Monocytes 0.99 10x3/uL (0.0-1.1); #Neutrophils 7.16 10x3/uL (1.5-8.4); %Basophils 0.8 % (0.0-2.0); %Eosinophils 0.6 % (0.0-6.0); %Lymphocytes 19.5 % (18.0-47.0); %Monocytes 9.5 % (0.0-10.0); %Neutrophils 68.4 % (40.0-75.0); Hematocrit 38.3 % (34.9-44.5); Hemoglobin 12.8 g/dL (12.0-15.5); Mean Corpuscular HGB CONC 33.4 g/dL (32.0-36.0); Mean Corpuscular Hemoglobin 31.3 pg (27.0-33.0); Mean Corpuscular Volume 93.6 fL (81.6-98.3); Mean Platelet Volume 10.4 fL (7.4-10.4); Platelet Count 218 10x3/uL (150-450); RBC Distribution Width 16.6 % (11.5-14.5); Red Blood Cell (RBC) Count 4.09 10x6/uL (3.90-5.03); White Blood Cell (WBC) Count 10.5 10x3/uL (3.5-10.5)
[2023-08-31 04:03] LABS: ALT (SGPT) 138 U/L (8-55); AST (SGOT) 77 U/L (5-34); Albumin 3.4 g/dL (3.4-4.8); Alkaline Phosphatase 148 U/L (40-110); Anion Gap 20 mmol/L (10-20); BUN (Urea Nitrogen) 33 mg/dL (9.8-20.1); Bilirubin, Total 1.1 mg/dL (0.2-1.2); Calc. Creatinine Clearance 29 mL/min (70-130); Calcium 9.9 mg/dL (7.8-10.44); Carbon Dioxide 14 mmol/L (23-31); Chloride 110 mmol/L (98-107); Estimated GFR 26; Globulin 3.6 g/dL (2.4-3.5); Glucose 105 mg/dL (83-110); Potassium 4.8 mmol/L (3.5-5.1); Sodium 139 mmol/L (136-145)
[2023-08-31] MEDS: Furosemide 40 MG (4 mL) VIAL SLOW IVP SCH (06:11)
[2023-08-31] MEDS: Cefepime 1 GM in Sodium Chloride 0.9% 100 ML IVPB SCH (06:24)
[2023-08-31] MEDS ORDERED: LevoFLOXacin 750 MG TAB PO SCH (07:30)
[2023-08-31] MEDS: Mometasone/Formoterol 200/5 60 PUFF INH SCH (08:02)
[2023-08-31] MEDS: Sertraline 25 MG TAB PO SCH (10:38)
[2023-08-31] MEDS: Cefuroxime 250 MG TAB PO SCH (10:39)
[2023-08-31] MEDS: Montelukast Sodium 10 mg Tablet PO SCH (10:39)
[2023-08-31] MEDS: Empagliflozin 10 MG TAB PO SCH (10:39)
[2023-08-31] MEDS: Amiodarone 200 MG TAB PO SCH (10:39)
[2023-08-31 10:55] LABS: HBsAg Index 0.21 S/CO (0-0.99); Hep B Surf Ag Non-Reactive S/CO (NonReactive)
[2023-08-31 12:01] LABS: Thyroid Stimulating Hormone 0.8725 uIU/mL (0.35-4.94)
[2023-08-31] MEDS: dilTIAZem CD 120 MG CAP PO SCH (12:39)
[2023-08-31] MEDS: Magnesium 2 GM/50 ML(in water) 2 GM in Premix 1 BAG IVPB SCH (12:43)
[2023-08-31 14:25] LABS: HBCM Index 0.12 S/CO (0-0.79); Hep A IgM AB NONREACTIVE (NonReactive); Hep A IgM S/CO 0.19 S/CO (0-0.79); Hep C IgG Ab NONREACTIVE S/CO (NonReactive); Hep C Index 0.16 S/CO (0-0.79); Hepatitis B Core IgM Abs NONREACTIVE S/CO (NonReactive)
[2023-08-31 17:19] LABS: T4 7.12 ug/dL (4.87-11.72)
[2023-09-01 05:28] VITALS: BMI 34.1
[2023-09-01] MEDS ORDERED: LevoFLOXacin 750 MG TAB PO SCH (06:00)
[2023-09-01] MEDS: dilTIAZem CD 120 MG CAP PO SCH (09:59)
[2023-09-01 10:14] LABS: #Basophils 0.06 10x3/uL (0.0-0.2); #Neutrophils 7.19 10x3/uL (1.5-8.4); %Basophils 0.6 % (0.0-2.0); %Lymphocytes 12.8 % (18.0-47.0); %Monocytes 9.4 % (0.0-10.0); %Neutrophils 75.4 % (40.0-75.0); Hemoglobin 12.4 g/dL (12.0-15.5); Mean Corpuscular HGB CONC 33.5 g/dL (32.0-36.0); Mean Corpuscular Hemoglobin 30.5 pg (27.0-33.0); Mean Corpuscular Volume 90.9 fL (81.6-98.3); Platelet Count 209 10x3/uL (150-450); RBC Distribution Width 16.7 % (11.5-14.5); Red Blood Cell (RBC) Count 4.07 10x6/uL (3.90-5.03); White Blood Cell (WBC) Count 9.6 10x3/uL (3.5-10.5)
[2023-09-01 10:22] LABS: ALT (SGPT) 124 U/L (8-55); AST (SGOT) 49 U/L (5-34); Albumin 3.3 g/dL (3.4-4.8); Alkaline Phosphatase 132 U/L (40-110); Anion Gap 16 mmol/L (10-20); BUN (Urea Nitrogen) 31 mg/dL (9.8-20.1); Bilirubin, Total 1.2 mg/dL (0.2-1.2); Calc. Creatinine Clearance 32 mL/min (70-130); Calcium 9.4 mg/dL (7.8-10.44); Carbon Dioxide 23 mmol/L (23-31); Chloride 103 mmol/L (98-107); Estimated GFR 28; Globulin 3.4 g/dL (2.4-3.5); Glucose 123 mg/dL (83-110); Magnesium 2.2 mg/dL (1.6-2.6); Potassium 3.6 mmol/L (3.5-5.1); Protein, Total 6.7 g/dL (5.8-8.1); Sodium 138 mmol/L (136-145)
[2023-09-01] MEDS: Potassium Chloride 20 MEQ TAB PO SCH (12:47)
[2023-09-02 04:51] LABS: ALT (SGPT) 91 U/L (8-55); AST (SGOT) 31 U/L (5-34); Albumin 3.1 g/dL (3.4-4.8); Alkaline Phosphatase 135 U/L (40-110); Anion Gap 18 mmol/L (10-20); BUN (Urea Nitrogen) 33 mg/dL (9.8-20.1); Bilirubin, Total 0.8 mg/dL (0.2-1.2); Calc. Creatinine Clearance 30 mL/min (70-130); Calcium 9.2 mg/dL (7.8-10.44); Carbon Dioxide 21 mmol/L (23-31); Chloride 104 mmol/L (98-107); Estimated GFR 26; Globulin 3.3 g/dL (2.4-3.5); Glucose 110 mg/dL (83-110); Potassium 4.1 mmol/L (3.5-5.1); Protein, Total 6.4 g/dL (5.8-8.1); Sodium 139 mmol/L (136-145)
[2023-09-02 05:04] LABS: #Basophils 0.05 10x3/uL (0.0-0.2); #Eosinphils 0.11 10x3/uL (0.0-0.5); #Monocytes 1.15 10x3/uL (0.0-1.1); #Neutrophils 7.33 10x3/uL (1.5-8.4); %Basophils 0.5 % (0.0-2.0); %Eosinophils 1.1 % (0.0-6.0); %Lymphocytes 15.6 % (18.0-47.0); %Monocytes 11.1 % (0.0-10.0); %Neutrophils 70.8 % (40.0-75.0); Hematocrit 36.3 % (34.9-44.5); Hemoglobin 12.3 g/dL (12.0-15.5); Mean Corpuscular HGB CONC 33.9 g/dL (32.0-36.0); Mean Corpuscular Hemoglobin 30.6 pg (27.0-33.0); Mean Corpuscular Volume 90.3 fL (81.6-98.3); Platelet Count 216 10x3/uL (150-450); RBC Distribution Width 16.4 % (11.5-14.5); Red Blood Cell (RBC) Count 4.02 10x6/uL (3.90-5.03); White Blood Cell (WBC) Count 10.3 10x3/uL (3.5-10.5)
[2023-09-02] MEDS: Digoxin 0.25 MG TAB PO SCH (11:05)
[2023-09-02] MEDS: dilTIAZem 30 MG TAB PO SCH (11:06)
[2023-09-03 03:45] LABS: #Basophils 0.05 10x3/uL (0.0-0.2); #Eosinphils 0.12 10x3/uL (0.0-0.5); #Monocytes 1.13 10x3/uL (0.0-1.1); #Neutrophils 6.72 10x3/uL (1.5-8.4); %Basophils 0.5 % (0.0-2.0); %Eosinophils 1.1 % (0.0-6.0); %Lymphocytes 19.2 % (18.0-47.0); %Monocytes 11.3 % (0.0-10.0); Hematocrit 37.7 % (34.9-44.5); Hemoglobin 12.4 g/dL (12.0-15.5); Mean Corpuscular HGB CONC 33.3 g/dL (32.0-36.0); Mean Corpuscular Hemoglobin 30.5 pg (27.0-33.0); Mean Corpuscular Volume 91.4 fL (81.6-98.3); Mean Platelet Volume 10.4 fL (7.4-10.4); Platelet Count 227 10x3/uL (150-450); RBC Distribution Width 16.4 % (11.5-14.5); Red Blood Cell (RBC) Count 4.07 10x6/uL (3.90-5.03)
[2023-09-03 03:55] LABS: ALT (SGPT) 69 U/L (8-55); AST (SGOT) 21 U/L (5-34); Albumin 3.2 g/dL (3.4-4.8); Alkaline Phosphatase 167 U/L (40-110); Anion Gap 17 mmol/L (10-20); BUN (Urea Nitrogen) 34 mg/dL (9.8-20.1); Bilirubin, Total 0.6 mg/dL (0.2-1.2); Calc. Creatinine Clearance 33 mL/min (70-130); Calcium 9.1 mg/dL (7.8-10.44); Carbon Dioxide 25 mmol/L (23-31); Chloride 102 mmol/L (98-107); Estimated GFR 29; Globulin 3.3 g/dL (2.4-3.5); Glucose 112 mg/dL (83-110); Potassium 3.9 mmol/L (3.5-5.1); Protein, Total 6.5 g/dL (5.8-8.1); Sodium 140 mmol/L (136-145)
[2023-09-03 09:05] VITALS: BP 168/81; TEMP 97.2
[2023-09-03] MEDS: dilTIAZem CD 180 MG CAP PO SCH (09:06)
[2023-09-03] MEDS: Digoxin 0.25 MG TAB PO SCH (09:07)
== END 2023-09-03 16:20 | disposition home or self-care (01) | DRG 291 ==
LOC: CSHERS 11:10 → CSHTELE 14:41
PROVIDERS: ADMIT Family Medicine; ATTEND Family Medicine
DX: I13.0 Hypertensive heart and chronic kidney disease with heart failure and stage 1 through stage 4 chronic kidney disease, or unspecified chronic kidney disease (principal); I50.23 Acute on chronic systolic (congestive) heart failure; J44.1 Chronic obstructive pulmonary disease with (acute) exacerbation; F03.94 Unspecified dementia, unspecified severity, with anxiety; F03.93 Unspecified dementia, unspecified severity, with mood disturbance; F03.918 Unspecified dementia, unspecified severity, with other behavioral disturbance; K76.1 Chronic passive congestion of liver; R30.0 Dysuria; E11.22 Type 2 diabetes mellitus with diabetic chronic kidney disease; I48.0 Paroxysmal atrial fibrillation; N18.30 Chronic kidney disease, stage 3 unspecified; E11.40 Type 2 diabetes mellitus with diabetic neuropathy, unspecified; I25.10 Atherosclerotic heart disease of native coronary artery without angina pectoris; K21.9 Gastro-esophageal reflux disease without esophagitis; M19.90 Unspecified osteoarthritis, unspecified site; E78.2 Mixed hyperlipidemia; E66.9 Obesity, unspecified; Z86.73 Personal history of transient ischemic attack (TIA), and cerebral infarction without residual deficits; I25.2 Old myocardial infarction; Z88.5 Allergy status to narcotic agent; Z91.040 Latex allergy status; Z90.49 Acquired absence of other specified parts of digestive tract; Z90.710 Acquired absence of both cervix and uterus; Z87.11 Personal history of peptic ulcer disease; Z79.51 Long term (current) use of inhaled steroids; Z79.82 Long term (current) use of aspirin; Z79.01 Long term (current) use of anticoagulants; Z79.899 Other long term (current) drug therapy; Z79.52 Long term (current) use of systemic steroids; Z88.8 Allergy status to other drugs, medicaments and biological substances; Z68.34 Body mass index [BMI] 34.0-34.9, adult
CPT/HCPCS: 0241U; 36415; 36416; 71045; 76705; 80053; 80074; 81001; 83605; 83735; 83880; 84145; 84436; 84443; 84484; 85025; 85610; 85730; 87040; 87070; 87081; 87205; 87449; 87899; 93005; 93010; 94640; 94664; 94760; 96374; 96375; J0692; J1940; J2543; J3370; J3475; J3490; S0028

== ENCOUNTER 2023-09-19 18:30 | Observation (INO) | payer OTHER ==
[2023-09-19 19:02] LABS: #Basophils 0.11 10x3/uL (0.0-0.2); #Eosinphils 0.22 10x3/uL (0.0-0.5); #Monocytes 1.08 10x3/uL (0.0-1.1); #Neutrophils 7.41 10x3/uL (1.5-8.4); %Lymphocytes 19.3 % (18.0-47.0); %Monocytes 9.8 % (0.0-10.0); %Neutrophils 67.3 % (40.0-75.0); Hematocrit 43.3 % (34.9-44.5); Hemoglobin 14.2 g/dL (12.0-15.5); Mean Corpuscular HGB CONC 32.8 g/dL (32.0-36.0); Mean Corpuscular Hemoglobin 30.1 pg (27.0-33.0); Mean Corpuscular Volume 91.7 fL (81.6-98.3); Mean Platelet Volume 10.4 fL (7.4-10.4); Platelet Count 218 10x3/uL (150-450); RBC Distribution Width 16.3 % (11.5-14.5); Red Blood Cell (RBC) Count 4.72 10x6/uL (3.90-5.03)
[2023-09-19 19:17] LABS: ALT (SGPT) 32 U/L (8-55); AST (SGOT) 27 U/L (5-34); Albumin 3.9 g/dL (3.4-4.8); Alkaline Phosphatase 154 U/L (40-110); Anion Gap 14 mmol/L (10-20); BUN (Urea Nitrogen) 29 mg/dL (9.8-20.1); Bilirubin, Total 0.7 mg/dL (0.2-1.2); Calc. Creatinine Clearance 0 mL/min (70-130); Calcium 10.4 mg/dL (7.8-10.44); Carbon Dioxide 26 mmol/L (23-31); Chloride 103 mmol/L (98-107); Estimated GFR 24; Globulin 3.6 g/dL (2.4-3.5); Glucose 100 mg/dL (83-110); Magnesium 1.9 mg/dL (1.6-2.6); Potassium 4.4 mmol/L (3.5-5.1); Protein, Total 7.5 g/dL (5.8-8.1); Sodium 139 mmol/L (136-145)
[2023-09-19] MEDS ORDERED: Ondansetron PF 4 MG/2 ML Vial ONE (19:27)
[2023-09-19] MEDS ORDERED: Morphine 4 MG/ML VIAL ONE (19:27)
[2023-09-19 19:41] LABS: Influenza A by NAA Not Detected (NotDetected); Influenza B by NAA Not Detected (NotDetected); SARS-CoV-2 NAA Rapid Test Not Detected (NotDetected)
[2023-09-19 20:17] LABS: Digoxin 2.46 ng/mL (0.8-2.0)
[2023-09-20] MEDS: Doxycycline 100 MG CAP PO SCH (01:42)
[2023-09-20 01:46] VITALS: BMI 31.4
[2023-09-20] MEDS ORDERED: Acetaminophen 650 MG Suppository PR PRN (03:31)
[2023-09-20] MEDS: Acetaminophen 325 MG TAB PO PRN (04:21)
[2023-09-20 04:30] LABS: #Basophils 0.09 10x3/uL (0.0-0.2); #Eosinphils 0.24 10x3/uL (0.0-0.5); #Monocytes 0.92 10x3/uL (0.0-1.1); #Neutrophils 5.62 10x3/uL (1.5-8.4); %Eosinophils 2.6 % (0.0-6.0); %Lymphocytes 24.6 % (18.0-47.0); %Neutrophils 61.3 % (40.0-75.0); Hematocrit 40.2 % (34.9-44.5); Hemoglobin 13.1 g/dL (12.0-15.5); Mean Corpuscular HGB CONC 32.6 g/dL (32.0-36.0); Mean Corpuscular Hemoglobin 30.5 pg (27.0-33.0); Mean Corpuscular Volume 93.7 fL (81.6-98.3); Mean Platelet Volume 10.3 fL (7.4-10.4); Platelet Count 201 10x3/uL (150-450); RBC Distribution Width 16.6 % (11.5-14.5); Red Blood Cell (RBC) Count 4.29 10x6/uL (3.90-5.03); White Blood Cell (WBC) Count 9.2 10x3/uL (3.5-10.5)
[2023-09-20 04:44] LABS: Anion Gap 14 mmol/L (10-20); BUN (Urea Nitrogen) 29 mg/dL (9.8-20.1); Calc. Creatinine Clearance 27 mL/min (70-130); Calcium 10.2 mg/dL (7.8-10.44); Carbon Dioxide 24 mmol/L (23-31); Chloride 108 mmol/L (98-107); Estimated GFR 25; Glucose 99 mg/dL (83-110); Potassium 5.5 mmol/L (3.5-5.1); Sodium 140 mmol/L (136-145)
[2023-09-20] MEDS: Sodium Bicarb 50 MEQ/50 ML Abboject 8.4% SYRINGE IVP SCH (05:41)
[2023-09-20] MEDS: Furosemide 20 MG (2 mL) VIAL SLOW IVP SCH (05:41)
[2023-09-20] MEDS: Dextrose 50% Abboject 50 ML SYRINGE SLOW IVP SCH (05:45)
[2023-09-20] MEDS: CALCIUM GLUC 1 GM/NS 50 ML 1 GM in Premix 1 BAG IVPB SCH (06:00)
[2023-09-20 07:38] LABS: Anion Gap 16 mmol/L (10-20); BUN (Urea Nitrogen) 28 mg/dL (9.8-20.1); Calc. Creatinine Clearance 27 mL/min (70-130); Calcium 10.4 mg/dL (7.8-10.44); Carbon Dioxide 20 mmol/L (23-31); Chloride 108 mmol/L (98-107); Estimated GFR 25; Glucose 165 mg/dL (83-110); Potassium 4.7 mmol/L (3.5-5.1); Sodium 139 mmol/L (136-145)
[2023-09-20] MEDS: Sodium Bicarbonate 150 MEQ in Dextrose 5% in Water 1,000 ML IV SCH (09:15)
[2023-09-20] MEDS: Sodium Polystyrene Sulfonate 15 GM (60 mL) BOT PO SCH (09:16)
[2023-09-20] MEDS ORDERED: Polyethylene Glycol 3350 17 GM Packet PO PRN (13:06)
[2023-09-20] MEDS ORDERED: Albuterol 2.5 MG (3 mL) NEB NEB PRN (13:09)
[2023-09-20 13:24] LABS: Digoxin 2.53 ng/mL (0.8-2.0)
[2023-09-20] MEDS: hydrALAZINE 25 MG TAB PO SCH (13:29)
[2023-09-20] MEDS: Magnesium 2 GM/50 ML(in water) 2 GM in Premix 1 BAG IVPB SCH (13:30)
[2023-09-20 14:31] LABS: Anion Gap 15 mmol/L (10-20); BUN (Urea Nitrogen) 27 mg/dL (9.8-20.1); Calc. Creatinine Clearance 26 mL/min (70-130); Calcium 10.6 mg/dL (7.8-10.44); Carbon Dioxide 30 mmol/L (23-31); Chloride 102 mmol/L (98-107); Estimated GFR 24; Glucose 147 mg/dL (83-110); Potassium 4.5 mmol/L (3.5-5.1); Sodium 142 mmol/L (136-145)
[2023-09-20] MEDS: Ipratropium Bromide 2.5 ml Neb NEB SCH (15:00)
[2023-09-20] MEDS: hydrALAZINE 20 MG/ML VIAL SLOW IVP PRN (17:11)
[2023-09-20] MEDS: Albuterol 2.5 MG (3 mL) NEB NEB SCH (18:55)
[2023-09-20] MEDS: Mometasone/Formoterol 200/5 60 PUFF INH SCH (18:55)
[2023-09-20 20:20] LABS: Digoxin 1.68 ng/mL (0.8-2.0)
[2023-09-20] MEDS: Gabapentin 300 MG CAP PO SCH (20:57)
[2023-09-20] MEDS: Atorvastatin Calcium 40 MG TAB PO SCH (20:58)
[2023-09-20] MEDS: Docusate 100 MG CAP PO SCH (20:58)
[2023-09-20] MEDS: Apixaban 2.5 MG TAB PO SCH (20:58)
[2023-09-20 21:44] LABS: Anion Gap 13 mmol/L (10-20); BUN (Urea Nitrogen) 25 mg/dL (9.8-20.1); Calc. Creatinine Clearance 28 mL/min (70-130); Calcium 10.1 mg/dL (7.8-10.44); Carbon Dioxide 32 mmol/L (23-31); Chloride 99 mmol/L (98-107); Estimated GFR 27; Glucose 127 mg/dL (83-110); Potassium 4.2 mmol/L (3.5-5.1); Sodium 140 mmol/L (136-145)
[2023-09-20 23:08] LABS: Digoxin 1.32 ng/mL (0.8-2.0)
[2023-09-21 06:40] LABS: #Basophils 0.07 10x3/uL (0.0-0.2); #Monocytes 0.94 10x3/uL (0.0-1.1); #Neutrophils 6.32 10x3/uL (1.5-8.4); %Basophils 0.7 % (0.0-2.0); %Eosinophils 3.1 % (0.0-6.0); %Lymphocytes 20.1 % (18.0-47.0); %Monocytes 9.8 % (0.0-10.0); Hematocrit 40.6 % (34.9-44.5); Hemoglobin 13.3 g/dL (12.0-15.5); Mean Corpuscular HGB CONC 32.8 g/dL (32.0-36.0); Mean Corpuscular Hemoglobin 30.6 pg (27.0-33.0); Mean Corpuscular Volume 93.3 fL (81.6-98.3); Mean Platelet Volume 10.4 fL (7.4-10.4); Platelet Count 171 10x3/uL (150-450); RBC Distribution Width 16.4 % (11.5-14.5); Red Blood Cell (RBC) Count 4.35 10x6/uL (3.90-5.03); White Blood Cell (WBC) Count 9.6 10x3/uL (3.5-10.5)
[2023-09-21 07:29] LABS: Anion Gap 18 mmol/L (10-20); BUN (Urea Nitrogen) 23 mg/dL (9.8-20.1); Calc. Creatinine Clearance 31 mL/min (70-130); Calcium 9.6 mg/dL (7.8-10.44); Carbon Dioxide 24 mmol/L (23-31); Chloride 102 mmol/L (98-107); Estimated GFR 30; Glucose 102 mg/dL (83-110); Magnesium 1.8 mg/dL (1.6-2.6); Potassium 4.2 mmol/L (3.5-5.1); Sodium 140 mmol/L (136-145)
[2023-09-21] MEDS: Sertraline 25 MG TAB PO SCH (08:49)
[2023-09-21] MEDS: Montelukast Sodium 10 mg Tablet PO SCH (08:50)
[2023-09-21] MEDS: Pantoprazole DR 40 MG TAB PO SCH (08:50)
[2023-09-21] MEDS: Carvedilol 6.25 MG TAB PO SCH ×2 (12:48→15:28)
[2023-09-21] MEDS: Magnesium 2 GM/50 ML(in water) 2 GM in Premix 1 BAG IVPB SCH (12:49)
[2023-09-21 12:56] LABS: Anion Gap 12 mmol/L (10-20); BUN (Urea Nitrogen) 23 mg/dL (9.8-20.1); Calc. Creatinine Clearance 27 mL/min (70-130); Calcium 9.8 mg/dL (7.8-10.44); Carbon Dioxide 34 mmol/L (23-31); Chloride 99 mmol/L (98-107); Estimated GFR 25; Glucose 111 mg/dL (83-110); Sodium 141 mmol/L (136-145)
[2023-09-21 13:29] LABS: Digoxin 1.22 ng/mL (0.8-2.0)
[2023-09-21 23:52] VITALS: TEMP 98.4
[2023-09-22 04:24] LABS: #Basophils 0.06 10x3/uL (0.0-0.2); #Eosinphils 0.26 10x3/uL (0.0-0.5); #Monocytes 0.82 10x3/uL (0.0-1.1); %Basophils 0.7 % (0.0-2.0); %Eosinophils 3.1 % (0.0-6.0); %Lymphocytes 24.1 % (18.0-47.0); %Monocytes 9.9 % (0.0-10.0); %Neutrophils 61.7 % (40.0-75.0); Hematocrit 46.7 % (34.9-44.5); Hemoglobin 15.2 g/dL (12.0-15.5); Mean Corpuscular HGB CONC 32.5 g/dL (32.0-36.0); Mean Corpuscular Hemoglobin 29.7 pg (27.0-33.0); Mean Corpuscular Volume 91.2 fL (81.6-98.3); Mean Platelet Volume 10.5 fL (7.4-10.4); Platelet Count 209 10x3/uL (150-450); RBC Distribution Width 16.8 % (11.5-14.5); Red Blood Cell (RBC) Count 5.12 10x6/uL (3.90-5.03); White Blood Cell (WBC) Count 8.3 10x3/uL (3.5-10.5)
[2023-09-22 05:52] LABS: Anion Gap 13 mmol/L (10-20); BUN (Urea Nitrogen) 27 mg/dL (9.8-20.1); Calc. Creatinine Clearance 26 mL/min (70-130); Calcium 9.4 mg/dL (7.8-10.44); Carbon Dioxide 31 mmol/L (23-31); Chloride 101 mmol/L (98-107); Estimated GFR 24; Glucose 105 mg/dL (83-110); Magnesium 2.4 mg/dL (1.6-2.6); Potassium 3.6 mmol/L (3.5-5.1); Sodium 141 mmol/L (136-145)
[2023-09-22] MEDS: Folic Acid/Vit B Comp W-C PO SCH (08:00)
[2023-09-22 08:05] VITALS: BP 163/70
== END 2023-09-22 09:44 | disposition short-term general hospital (02) ==
LOC: CSHERS 18:30 → CSHTELE 23:10
PROVIDERS: ADMIT Student in an Organized Health Care Education/Training Program; ATTEND Hospitalist
DX: R41.82 Altered mental status, unspecified (principal); T46.0X5A Adverse effect of cardiac-stimulant glycosides and drugs of similar action, initial encounter; E87.5 Hyperkalemia; G93.40 Encephalopathy, unspecified; I13.0 Hypertensive heart and chronic kidney disease with heart failure and stage 1 through stage 4 chronic kidney disease, or unspecified chronic kidney disease; N18.4 Chronic kidney disease, stage 4 (severe); I50.22 Chronic systolic (congestive) heart failure; I48.21 Permanent atrial fibrillation; I49.5 Sick sinus syndrome; E78.5 Hyperlipidemia, unspecified; I25.10 Atherosclerotic heart disease of native coronary artery without angina pectoris; J44.9 Chronic obstructive pulmonary disease, unspecified; Z79.51 Long term (current) use of inhaled steroids; Z79.01 Long term (current) use of anticoagulants; Z79.899 Other long term (current) drug therapy; Z88.5 Allergy status to narcotic agent; Z91.040 Latex allergy status; Z90.89 Acquired absence of other organs; Z98.890 Other specified postprocedural states; W19.XXXA Unspecified fall, initial encounter
CPT/HCPCS: 0240U; 70450; 71045; 74176; 80048 ×5; 80162 ×3; 82962 ×2; 83735 ×3; 85025 ×3; 93005 ×2; 94640 ×7; 96374; 96375 ×2; 96376 ×2; 99285; G0378 ×4; J0360; J0613; J1940; J2270; J2405; J3475 ×2; J7070; J7999; 36415; 36416; 80053; 84443; 93010; J7611

== ENCOUNTER 2023-11-02 16:56 | Inpatient (IN) | payer OTHER, MEDICARE ==
[2023-11-02 18:42] LABS: #Basophils 0.04 10x3/uL (0.0-0.2); #Eosinphils 0.14 10x3/uL (0.0-0.5); #Monocytes 0.98 10x3/uL (0.0-1.1); #Neutrophils 7.02 10x3/uL (1.5-8.4); %Basophils 0.4 % (0.0-2.0); %Eosinophils 1.5 % (0.0-6.0); %Lymphocytes 14.7 % (18.0-47.0); %Monocytes 10.2 % (0.0-10.0); %Neutrophils 72.7 % (40.0-75.0); Hematocrit 34.2 % (34.9-44.5); Hemoglobin 10.7 g/dL (12.0-15.5); Mean Corpuscular HGB CONC 31.3 g/dL (32.0-36.0); Mean Corpuscular Hemoglobin 29.2 pg (27.0-33.0); Mean Corpuscular Volume 93.4 fL (81.6-98.3); Platelet Count 244 10x3/uL (150-450); RBC Distribution Width 19.2 % (11.5-14.5); Red Blood Cell (RBC) Count 3.66 10x6/uL (3.90-5.03); White Blood Cell (WBC) Count 9.7 10x3/uL (3.5-10.5)
[2023-11-02 19:05] LABS: ALT (SGPT) 13 U/L (8-55); AST (SGOT) 16 U/L (5-34); Albumin 3.5 g/dL (3.4-4.8); Alkaline Phosphatase 127 U/L (40-110); Anion Gap 14 mmol/L (10-20); BUN (Urea Nitrogen) 18 mg/dL (9.8-20.1); Bilirubin, Total 0.8 mg/dL (0.2-1.2); Calc. Creatinine Clearance 0 mL/min (70-130); Calcium 9.4 mg/dL (7.8-10.44); Carbon Dioxide 22 mmol/L (23-31); Chloride 109 mmol/L (98-107); Estimated GFR 28; Globulin 3.4 g/dL (2.4-3.5); Glucose 145 mg/dL (83-110); Potassium 4.1 mmol/L (3.5-5.1); Protein, Total 6.9 g/dL (5.8-8.1); Sodium 141 mmol/L (136-145)
[2023-11-02 19:11] LABS: Troponin I 0.106 ng/mL (< 0.028)
[2023-11-02 19:31] LABS: INR-International Normal Ratio 1.3; PTT 28.8 sec (22.0-33.0); Prothrombin Time 13.5 sec (9.5-12.1)
[2023-11-02] MEDS ORDERED: Furosemide 40 MG (4 mL) VIAL ONE (21:06)
[2023-11-02] MEDS ORDERED: Aspirin Chewable 81 MG TAB ONE (21:06)
[2023-11-02] MEDS ORDERED: Insulin Lispro 100 UNIT/ML 10 ML VIAL SC PRN (21:30)
[2023-11-02] MEDS ORDERED: Dextrose 5% in Water 1,000 ML IV PRN (21:30)
[2023-11-02] MEDS ORDERED: Guaifenesin DM 100-10/5 ML UDCUP PO PRN (21:30)
[2023-11-02] MEDS ORDERED: Dextrose 50% Abboject 50 ML SYRINGE SLOW IVP PRN (21:30)
[2023-11-02] MEDS ORDERED: Glucagon 1 MG/ML KIT IM PRN (21:30)
[2023-11-02] MEDS ORDERED: Ondansetron PF 4 MG/2 ML Vial IVP PRN (21:30)
[2023-11-02] MEDS ORDERED: Calcium Carbonate 500 MG ChewTAB PO PRN (21:30)
[2023-11-02] MEDS ORDERED: Albuterol 2.5 MG (3 mL) NEB NEB PRN (21:37)
[2023-11-02 23:53] LABS: Troponin I 0.094 ng/mL (< 0.028)
[2023-11-03 03:59] LABS: #Basophils 0.04 10x3/uL (0.0-0.2); #Eosinphils 0.19 10x3/uL (0.0-0.5); #Monocytes 1.08 10x3/uL (0.0-1.1); #Neutrophils 5.98 10x3/uL (1.5-8.4); %Basophils 0.4 % (0.0-2.0); %Eosinophils 2.1 % (0.0-6.0); %Lymphocytes 18.3 % (18.0-47.0); %Neutrophils 66.4 % (40.0-75.0); Hematocrit 31.4 % (34.9-44.5); Hemoglobin 9.9 g/dL (12.0-15.5); Mean Corpuscular HGB CONC 31.5 g/dL (32.0-36.0); Mean Corpuscular Volume 92.1 fL (81.6-98.3); Platelet Count 210 10x3/uL (150-450); Red Blood Cell (RBC) Count 3.41 10x6/uL (3.90-5.03)
[2023-11-03 04:20] LABS: Troponin I 0.088 ng/mL (< 0.028)
[2023-11-03 04:52] LABS: Anion Gap 14 mmol/L (10-20); BUN (Urea Nitrogen) 17 mg/dL (9.8-20.1); Calc. Creatinine Clearance 33 mL/min (70-130); Calcium 9.4 mg/dL (7.8-10.44); Carbon Dioxide 21 mmol/L (23-31); Chloride 110 mmol/L (98-107); Estimated GFR 31; Glucose 107 mg/dL (83-110); Potassium 4.2 mmol/L (3.5-5.1); Sodium 141 mmol/L (136-145)
[2023-11-03] MEDS: Furosemide 40 MG (4 mL) VIAL SLOW IVP SCH (06:11)
[2023-11-03] MEDS: Mometasone 200 MCG/Formoterol 5 MCG 60 PUFF INHALER INH SCH (07:16)
[2023-11-03] MEDS ORDERED: Carvedilol 25 MG TAB PO SCH (08:00)
[2023-11-03] MEDS ORDERED: Enoxaparin 40 MG (0.4 mL) SYRINGE SC SCH (09:00)
[2023-11-03] MEDS: Empagliflozin 10 MG TAB PO SCH (09:41)
[2023-11-03] MEDS: Aspirin 81 mg Enteric Coated Tablet PO SCH (09:41)
[2023-11-03] MEDS: DULoxetine 30 MG CAP PO SCH (09:41)
[2023-11-03] MEDS: Losartan 50 MG TAB PO SCH (09:41)
[2023-11-03] MEDS: Apixaban 2.5 MG TAB PO SCH (09:41)
[2023-11-03] MEDS: Magnesium Oxide 400 MG TAB PO SCH (09:41)
[2023-11-03] MEDS: Carvedilol 6.25 MG TAB PO SCH (09:41)
[2023-11-03] MEDS: Gabapentin 300 MG CAP PO SCH (09:42)
[2023-11-03] MEDS: Montelukast Sodium 10 mg Tablet PO SCH (09:43)
[2023-11-03] MEDS: Pantoprazole DR 40 MG TAB PO SCH (09:43)
[2023-11-03] MEDS: Divalproex Sodium 250 MG ER.TAB PO SCH (11:08)
[2023-11-03] MEDS: Folic Acid/Vit B Comp W-C PO SCH (11:08)
[2023-11-03 11:32] LABS: Magnesium 1.8 mg/dL (1.6-2.6)
[2023-11-03] MEDS: Magnesium 2 GM/50 ML(in water) 2 GM in Premix 1 BAG IVPB SCH (14:16)
[2023-11-03] MEDS: Atorvastatin Calcium 40 MG TAB PO SCH (20:45)
[2023-11-04 08:33] LABS: Anion Gap 15 mmol/L (10-20); BUN (Urea Nitrogen) 17 mg/dL (9.8-20.1); Calc. Creatinine Clearance 34 mL/min (70-130); Calcium 9.4 mg/dL (7.8-10.44); Carbon Dioxide 24 mmol/L (23-31); Chloride 106 mmol/L (98-107); Estimated GFR 31; Glucose 123 mg/dL (83-110); Potassium 4.1 mmol/L (3.5-5.1); Sodium 141 mmol/L (136-145)
[2023-11-04 08:36] LABS: #Basophils 0.04 10x3/uL (0.0-0.2); #Eosinphils 0.17 10x3/uL (0.0-0.5); #Monocytes 0.67 10x3/uL (0.0-1.1); #Neutrophils 5.53 10x3/uL (1.5-8.4); %Basophils 0.5 % (0.0-2.0); %Eosinophils 2.2 % (0.0-6.0); %Lymphocytes 17.4 % (18.0-47.0); %Monocytes 8.6 % (0.0-10.0); %Neutrophils 70.8 % (40.0-75.0); Hematocrit 34.4 % (34.9-44.5); Hemoglobin 10.8 g/dL (12.0-15.5); Mean Corpuscular HGB CONC 31.4 g/dL (32.0-36.0); Mean Corpuscular Hemoglobin 29.2 pg (27.0-33.0); Platelet Count 222 10x3/uL (150-450); RBC Distribution Width 19.2 % (11.5-14.5); White Blood Cell (WBC) Count 7.8 10x3/uL (3.5-10.5)
[2023-11-04] MEDS: guaiFENesin ER 600 MG TAB PO SCH (20:22)
[2023-11-04] MEDS: Acetaminophen 325 MG TAB PO PRN (20:22)
[2023-11-05 03:53] LABS: #Basophils 0.06 10x3/uL (0.0-0.2); #Eosinphils 0.12 10x3/uL (0.0-0.5); #Monocytes 0.68 10x3/uL (0.0-1.1); #Neutrophils 5.68 10x3/uL (1.5-8.4); %Basophils 0.7 % (0.0-2.0); %Eosinophils 1.4 % (0.0-6.0); %Lymphocytes 20.7 % (18.0-47.0); %Monocytes 8.2 % (0.0-10.0); %Neutrophils 68.6 % (40.0-75.0); Hematocrit 32.4 % (34.9-44.5); Hemoglobin 10.9 g/dL (12.0-15.5); Mean Corpuscular HGB CONC 33.6 g/dL (32.0-36.0); Mean Corpuscular Hemoglobin 30.5 pg (27.0-33.0); Mean Corpuscular Volume 90.8 fL (81.6-98.3); Mean Platelet Volume 9.9 fL (7.4-10.4); Platelet Count 218 10x3/uL (150-450); RBC Distribution Width 18.6 % (11.5-14.5); Red Blood Cell (RBC) Count 3.57 10x6/uL (3.90-5.03); White Blood Cell (WBC) Count 8.3 10x3/uL (3.5-10.5)
[2023-11-05 04:01] LABS: Anion Gap 14 mmol/L (10-20); BUN (Urea Nitrogen) 18 mg/dL (9.8-20.1); Calc. Creatinine Clearance 37 mL/min (70-130); Calcium 9.1 mg/dL (7.8-10.44); Carbon Dioxide 21 mmol/L (23-31); Chloride 105 mmol/L (98-107); Estimated GFR 34; Glucose 91 mg/dL (83-110); Potassium 4.2 mmol/L (3.5-5.1); Sodium 136 mmol/L (136-145)
[2023-11-05 06:27] VITALS: BMI 32.8
[2023-11-05] MEDS: Furosemide 20 MG TAB PO SCH (08:39)
[2023-11-05] MEDS: Senokot S 8.6-50 MG TAB PO PRN (08:40)
[2023-11-05 09:41] VITALS: BP 141/76; TEMP 98.3
== END 2023-11-05 11:48 | disposition home or self-care (01) | DRG 291 ==
LOC: CSHERS 16:56 → CSHTELE 21:27 → MERGE 21:27
PROVIDERS: ADMIT Student in an Organized Health Care Education/Training Program; ATTEND Student in an Organized Health Care Education/Training Program
PROC: 5A09357 Assistance with Respiratory Ventilation, Less than 24 Consecutive Hours, Continuous Positive Airway Pressure (ICD-10-PCS; principal; 2023-11-05)
DX: I13.0 Hypertensive heart and chronic kidney disease with heart failure and stage 1 through stage 4 chronic kidney disease, or unspecified chronic kidney disease (principal); I50.43 Acute on chronic combined systolic (congestive) and diastolic (congestive) heart failure; J96.01 Acute respiratory failure with hypoxia; F33.9 Major depressive disorder, recurrent, unspecified; I48.21 Permanent atrial fibrillation; I25.10 Atherosclerotic heart disease of native coronary artery without angina pectoris; I25.2 Old myocardial infarction; K21.9 Gastro-esophageal reflux disease without esophagitis; E78.00 Pure hypercholesterolemia, unspecified; J44.9 Chronic obstructive pulmonary disease, unspecified; F41.9 Anxiety disorder, unspecified; N18.30 Chronic kidney disease, stage 3 unspecified; E11.22 Type 2 diabetes mellitus with diabetic chronic kidney disease; M19.90 Unspecified osteoarthritis, unspecified site; G47.33 Obstructive sleep apnea (adult) (pediatric); E78.2 Mixed hyperlipidemia; E11.51 Type 2 diabetes mellitus with diabetic peripheral angiopathy without gangrene; Z91.048 Other nonmedicinal substance allergy status; Z88.5 Allergy status to narcotic agent; Z95.0 Presence of cardiac pacemaker; Z90.49 Acquired absence of other specified parts of digestive tract; Z90.710 Acquired absence of both cervix and uterus; Z79.899 Other long term (current) drug therapy; Z79.01 Long term (current) use of anticoagulants
CPT/HCPCS: 36415; 36416; 71045; 80048; 80053; 83605; 83735; 83880; 84443; 84484; 85025; 85610; 85730; 87040; 93005; 94762; 96374; J1940; J3475